=== PATIENT | female | born 1950 | race Caucasian/White ===

== ENCOUNTER 2018-08-02 10:21 | Day surgery (SDC) | payer OTHER ==
[~2018-08-02 10:21] MED LIST: KETOROLAC TROMETHAMINE 0.45% 4 DROP/0.4 ML DROPERETTE OD PRN; MIDAZOLAM 2 MG/2 ML INJ ONE
[2018-08-02] MEDS ORDERED: CHONDR SU A NA/HYALUR INTRAOC KIT (SURGICARE) ONE (10:26)
[2018-08-02] MEDS ORDERED: LIDOCAINE 1%/PHENYLEPHRINE 1.5% 1 ML VIAL ONE (10:26)
[2018-08-02] MEDS ORDERED: EPINEPHRINE INJ/PF 1 MG/1 ML AMPULE ONE (10:26)
[2018-08-02] MEDS: TETRACAINE HCL 0.5% OPH SOLN 4 ML OD PRN ×3 (11:00→11:34)
[2018-08-02] MEDS: TROPICAMIDE 1% OPH SOLN 3 ML OD PRN ×3 (11:00→11:20)
[2018-08-02] MEDS: CYCLOPENTOLATE 0.2%/PHENYLEPHRINE 1% OPH SOLN 2 ML OD PRN ×3 (11:00→11:20)
[2018-08-02] MEDS: BESIFLOXACIN HCL 0.6% OPH SUSP 5 ML BOTTLE OD PRN ×4 (11:01→11:54)
--- NOTE | 2018-08-02 18:47 | [facility] DISCHARGE SUMMARY E ---
[facility] Discharge Summary NAME: CATARINA MEDINA AGE: 68Y ADMITTED: 08/02/2018 DISCHARGED: 08/02/2018 HOSPITAL COURSE: This is a 68-year-old female who underwent cataract extraction of the right eye. DIAGNOSIS: CATARACT, RIGHT EYE. She underwent surgery because she was having difficulty driving secondary to glare from headlights. DISCHARGE INSTRUCTIONS: She should be on a regular diet. No bending at her waist, no heavy lifting. She should use her Besivance, Ilevro, and Durezol at 3 p.m. and 8 p.m. and sleep with a rigid shield. I will see her for her 1 day postoperative tomorrow. DICTATING PHYSICIAN: MIRZA HERNANDEZ M.D. [id number] PHY#: [id number] ID: [id number] JOB#: [id number] ACCT: [id number] cc:MIRZA HERNANDEZ M.D. >
--- NOTE | 2018-08-02 18:47 | [facility] OPERATIVE REPORT E ---
[facility] Operative Report NAME: CATARINA MEDINA AGE: 68Y DATE OF SURGERY: 08/02/2018 ROOM: PREOPERATIVE DIAGNOSIS: CATARACT, RIGHT EYE. POSTOPERATIVE DIAGNOSIS: CATARACT, RIGHT EYE. OPERATION: Cataract extraction with insertion of an IOL of the right eye. SURGEON: MIRZA HERNANDEZ M.D. ANESTHESIA: Topical. PROCEDURE: After obtaining appropriate consent, the patient's right eye was prepped and draped in sterile fashion as well as the surgeon in a sterile manner and cataract surgery was started. First a paracentesis blade was used to make a side-port incision. Viscoelastic was used to inflate the anterior chamber. Next a 2.4 mm incision was made with a 2.4 mm blade, clear corneal temporally. A continuous capsulorrhexis was made using a cystotome and Utrata forceps. Following this hydrodissection was carried out to make the lens fully loose and mobile and it was rotated 90 degrees. Following this, a uoaawc-yej-onhkwuc technique was used to phacoemulsify the lens with a CDE of 8.26 . The remaining cortex was removed with irrigation/aspiration. Provisc was instilled into the capsular bag to inflate the bag. A SN60WF, 21.5 diopter lens was placed. The remaining viscoelastic material was removed with irrigation/aspiration. Following this, the incision was found to be watertight. Besivance was instilled into the eye and a protective shield was placed over the eye. The patient returned to the postoperative recovery in stable condition. DICTATING PHYSICIAN: IMRZA HERNANDEZ M.D. [id number] PHY#: [id number] ID: [id number] JOB#: [id number] ACCT: [id number] cc:MIRZA HERNANDEZ M.D. >
== END 2018-08-02 12:48 | disposition home or self-care (01) ==
LOC: SC 10:21
PROVIDERS: ATTEND Internal Medicine
DX: H25.13 Age-related nuclear cataract, bilateral (principal); H57.03 Miosis; I10 Essential (primary) hypertension; E78.00 Pure hypercholesterolemia, unspecified; Z79.899 Other long term (current) drug therapy; H04.123 Dry eye syndrome of bilateral lacrimal glands
CPT/HCPCS: 66984; V2632; J2250; J3490 ×2; J0171; J2370; 142

== ENCOUNTER 2018-08-20 08:36 | Day surgery (SDC) | payer OTHER ==
[2018-08-20] MEDS ORDERED: MIDAZOLAM 2 MG/2 ML INJ ONE (08:52)
[2018-08-20] MEDS ORDERED: EPINEPHRINE INJ/PF 1 MG/1 ML AMPULE ONE (09:08)
[2018-08-20] MEDS ORDERED: LIDOCAINE 1%/PHENYLEPHRINE 1.5% 1 ML VIAL ONE (09:08)
[2018-08-20] MEDS ORDERED: CHONDR SU A NA/HYALUR INTRAOC KIT (SURGICARE) ONE (09:09)
[2018-08-20] MEDS: TETRACAINE HCL 0.5% OPH SOLN 4 ML OS PRN ×3 (09:25→09:59)
[2018-08-20] MEDS: CYCLOPENTOLATE 0.2%/PHENYLEPHRINE 1% OPH SOLN 2 ML OS PRN ×3 (09:25→09:45)
[2018-08-20] MEDS: TROPICAMIDE 1% OPH SOLN 3 ML OS PRN ×3 (09:26→09:45)
[2018-08-20] MEDS: KETOROLAC TROMETHAMINE 0.45% 4 DROP/0.4 ML DROPERETTE OS PRN ×2 (09:26→10:31)
[2018-08-20] MEDS: BESIFLOXACIN HCL 0.6% OPH SUSP 5 ML BOTTLE OS PRN ×3 (09:26→10:24)
[2018-08-20] MEDS ORDERED: CHONDR SU A NA/HYALUR SOD 0.5 ML DISP.SYRIN ONE (11:13)
--- NOTE | 2018-08-20 14:26 | [facility] OPERATIVE REPORT E ---
[facility] Operative Report NAME: CATARINA MEDINA AGE: 68Y DATE OF SURGERY: 08/20/2018 ROOM: PREOPERATIVE DIAGNOSIS: CATARACT, LEFT EYE. POSTOPERATIVE DIAGNOSIS: CATARACT, LEFT EYE. OPERATION: Cataract extraction with insertion of an IOL of the left eye. SURGEON: MIRZA HERNANDEZ M.D. ANESTHESIA: Topical. PROCEDURE: After obtaining appropriate consent, the patient's left eye was prepped and draped in sterile fashion as well as the surgeon in a sterile manner and cataract surgery was started. First a paracentesis blade was used to make a side-port incision. Viscoelastic was used to inflate the anterior chamber. Next a 2.4 mm incision was made with a 2.4 mm blade, clear corneal temporally. A continuous capsulorrhexis was made using a cystotome and Utrata forceps. Following this hydrodissection was carried out to make the lens fully loose and mobile and it was rotated 90 degrees. Following this, a bksxxr-hsw-xfydadj technique was used to phacoemulsify the lens with a CDE of 6.97. The remaining cortex was removed with irrigation/aspiration. Provisc was instilled into the capsular bag to inflate the bag. A SN60WF, 21.0 diopter lens was placed. The remaining viscoelastic material was removed with irrigation/aspiration. Following this, the incision was found to be watertight. Besivance was instilled into the eye and a protective shield was placed over the eye. The patient returned to the postoperative recovery in stable condition. DICTATING PHYSICIAN: MIRZA HERNANDEZ M.D. [id number] PHY#: [id number] ID: [id number] JOB#: [id number] ACCT: [id number] cc:MIRZA HERNANDEZ M.D. >
--- NOTE | 2018-08-20 14:32 | [facility] DISCHARGE SUMMARY E ---
[facility] Discharge Summary NAME: CATARINA MEDINA AGE: 68Y ADMITTED: 08/20/2018 DISCHARGED: 08/20/2018 DIAGNOSIS: CATARACT, LEFT EYE. SUMMARY: This is a 68-year-old female who underwent cataract extraction, left eye. She underwent surgery because she was having trouble seeing road signs. DISCHARGE INSTRUCTIONS: She should be on a regular diet, no bending at the waist, and no heavy lifting. The patient should use her Besivance, Ilevro, and Durezol at 3 p.m. and 8 p.m. and sleep with a rigid shield. I will see her for her 1-day postoperative tomorrow. DICTATING PHYSICIAN: MIRZA HERNANDEZ M.D. [id number] Y#: [id number] ID: [id number] JOB#: [id number] ACCT: [id number] cc:MIRZA HERNANDEZ M.D. >
== END 2018-08-20 11:08 | disposition home or self-care (01) ==
LOC: SC 08:36
PROVIDERS: ATTEND Internal Medicine
DX: H25.12 Age-related nuclear cataract, left eye (principal)
CPT/HCPCS: 66984; V2632; J2250; J3490 ×3; J0171; J2370; 142

== ENCOUNTER 2020-05-30 15:54 | Emergency (ER) | payer OTHER, BC ==
--- NOTE | 2020-05-30 16:50 | ER Document Report ---
ED Medical Screen (RME) - General Chief Complaint: Fall Stated Complaint: FALL/KNEE PAIN Time Seen by Provider: 05/30/20 16:42 Primary Care Provider: JAZ GRAHAM CNM [Primary Care Provider] - Follow up as needed Notes: Patient is a 70-year-old female who presents emergency department after mechanical fall. Patient was at home and working in her garden and ended up tripping and falling on her left knee. Patient states that she did hit her head. She is currently on Eliquis. She denies any loss of consciousness. Patient stopped to urgent care was referred to the emergency department. On the way over, she noticed that she had bruising to her left hand. Exam: Alert and oriented. Tenderness noted to the left knee and left hand. I have greeted and performed a rapid initial assessment of this patient. A co mprehensive ED assessment and evaluation of the patient, analysis of test results and completion of medical decision making process will be conducted by an additional ED providers. TRAVEL OUTSIDE OF THE [place] IN LAST 30 DAYS: No - Related Data Allergies/Adverse Reactions: No Known Allergies Allergy (Verified 05/30/20 16:43) Home Medications: Valsartan, Eliquis Past Medical History - Social History Frequency of alcohol use: None Drug Abuse: None - Past Medical History Cardiac Medical History: Reports: Hx Hypertension Denies: Hx Heart Attack Pulmonary Medical History: Denies: Hx Asthma Neurological Medical History: Denies: Hx Cerebrovascular Accident, Hx Seizures GI Medical History: Denies: Hx Hepatitis, Hx Hiatal Hernia, Hx Ulcer Infectious Medical History: Denies: Hx Hepatitis Past Surgical History: Reports: Hx Hysterectomy. Denies: Hx Mastectomy, Hx Open Heart Surgery, Hx Pacemaker Physical Exam - Vital signs Vitals: Temp Pulse Resp BP Pulse Ox 98.4 F 64 18 188/87 H 99 05/30/20 16:02 05/30/20 16:02 05/30/20 16:02 05/30/20 16:02 05/30/20 16:02 Course - Vital Signs Vital signs: Temp Pulse Resp BP Pulse Ox 98.4 F 64 18 188/87 H 99 05/30/20 16:02 05/30/20 16:02 05/30/20 16:02 05/30/20 16:02 05/30/20 16:02 Doctor's Discharge - Discharge Referrals: JAZ GRAHAM CNM [Primary Care Provider] - Follow up as needed
--- NOTE | 2020-05-30 17:38 | RADIOLOGY REPORT (SQ) ---
EXAM DESCRIPTION: HAND LEFT 3 VIEWS IMAGES COMPLETED DATE/TIME: 05/30/2020 5:11 pm REASON FOR STUDY: fall COMPARISON: None. EXAM PARAMETERS: NUMBER OF VIEWS: Three views. TECHNIQUE: AP, lateral and oblique radiographic images acquired of the left hand. LIMITATIONS: None. FINDINGS: MINERALIZATION: Normal. BONES: No acute fracture or dislocation. No worrisome bone lesions. JOINTS: No effusions. SOFT TISSUES: No soft tissue swelling. No foreign body. OTHER: No other significant finding. IMPRESSION: NEGATIVE STUDY OF THE LEFT HAND. NO RADIOGRAPHIC EVIDENCE OF ACUTE INJURY. TECHNICAL DOCUMENTATION: JOB ID: [id number] 2010 [employer]- All Rights Reserved Reading location - IP/workstation name: [email or web address]
--- NOTE | 2020-05-30 17:39 | RADIOLOGY REPORT (SQ) ---
EXAM DESCRIPTION: ANKLE LEFT COMPLETE IMAGES COMPLETED DATE/TIME: 05/30/2020 5:11 pm REASON FOR STUDY: fall; ankle pain COMPARISON: None. NUMBER OF VIEWS: Three views. TECHNIQUE: AP, lateral, and oblique radiographic images acquired of the left ankle. LIMITATIONS: None. FINDINGS: MINERALIZATION: Normal. BONES: No acute fracture or dislocation. No worrisome bone lesions. Incidental note is made of a ti ny Achilles enthesophyte. JOINTS: No effusions. SOFT TISSUES: No soft tissue swelling. No foreign body. OTHER: No other significant finding. IMPRESSION: NEGATIVE STUDY OF THE LEFT ANKLE. NO RADIOGRAPHIC EVIDENCE OF ACUTE INJURY. TECHNICAL DOCUMENTATION: JOB ID: [id number] 2010 [employer]- All Rights Reserved Reading location - IP/workstation name: [email or web address]
--- NOTE | 2020-05-30 17:40 | RADIOLOGY REPORT (SQ) ---
EXAM DESCRIPTION: KNEE LEFT 4 VIEW IMAGES COMPLETED DATE/TIME: 05/30/2020 5:11 pm REASON FOR STUDY: fall COMPARISON: None. NUMBER OF VIEWS: Four views. TECHNIQUE: AP, lateral, and both oblique radiographic images acquired of the left knee. LIMITATIONS: None. FINDINGS: MINERALIZATION: Normal. BONES: No acute fracture or dislocation. No worrisome bone lesions. Mild tricompartmental degenerat russ changes are present. JOINT: Small suprapatellar effusion. SOFT TISSUES: No soft tissue swelling. No radio-opaque foreign body. OTHER: No other significant finding. IMPRESSION: No evidence of acute osseous injury. Background of mild tricompartmental degenerative c hanges and a small suprapatellar effusion. TECHNICAL DOCUMENTATION: JOB ID: [id number] 2010 [employer]- All Rights Reserved Reading location - IP/workstation name: [email or web address]
--- NOTE | 2020-05-30 18:07 | RADIOLOGY REPORT (SQ) ---
EXAM DESCRIPTION: CT CERVICAL SPINE WITHOUT IMAGES COMPLETED DATE/TIME: 05/30/2020 5:37 pm REASON FOR STUDY: fall COMPARISON: None. TECHNIQUE: Axial images acquired through the cervical spine without intravenous contrast. Images re viewed with lung, soft tissue and bone windows. Reconstructed coronal and sagittal MPR images review ed. Images stored on PACS. All CT scanners at this facility use dose modulation, iterative reconstruction, and/or weight based d osing when appropriate to reduce radiation dose to as low as reasonably achievable (ALARA). [facility]: Dose Right [facility]: CareDose [facility]: Dose Right [facility]: Teradose 4D [facility]: Smart Auctelia RADIATION DOSE: CT Rad equipment meets quality standard of care and radiation dose reduction techniq ues were employed. CTDIvol: 15.1 mGy. DLP: 306 mGy-cm. mGy. LIMITATIONS: None. FINDINGS: ALIGNMENT: Mild reversal of the normal lordotic curvature centered at the C5/6 level on th e basis of spondylotic change. MINERALIZATION: Normal. VERTEBRAL BODIES: No fractures or dislocation. DISCS: Multilevel disc space narrowing with osteophytes most significantly affecting the C5/6 level. . FACETS, LATERAL MASSES, POSTERIOR ELEMENTS: Facet arthropathy. No fractures. No dislocation. No ac turtle mountain findings. HARDWARE: None in the spine. VISUALIZED RIBS: No fractures. LUNG APICES AND SOFT TISSUES: No significant or acute findings. OTHER: No other significant finding. IMPRESSION: CHRONIC DEGENERATIVE CHANGES. NO ACUTE FINDINGS. TECHNICAL DOCUMENTATION: JOB ID: [id number] Quality ID # [id number]: Final reports with documentation of one or more dose reduction techniques (e.g., Au tomated exposure control, adjustment of the mA and/or kV according to patient size, use of iterative reconstruction technique) 2010 [employer]- All Rights Reserved Reading location - IP/workstation name: [email or web address]
--- NOTE | 2020-05-30 18:09 | RADIOLOGY REPORT (SQ) ---
EXAM DESCRIPTION: CT HEAD WITHOUT IMAGES COMPLETED DATE/TIME: 05/30/2020 5:38 pm REASON FOR STUDY: fall COMPARISON: None. TECHNIQUE: Axial images acquired through the brain without intravenous contrast. Images reviewed wi th bone, brain and subdural windows. Additional sagittal and coronal reconstructions were generated. Images stored on PACS. All CT scanners at this facility use dose modulation, iterative reconstruction, and/or weight based d osing when appropriate to reduce radiation dose to as low as reasonably achievable (ALARA). [facility]: Dose Right [facility]: CareDose [facility]: Dose Right [facility]: Teradose 4D [facility]: [employer] RADIATION DOSE: CT Rad equipment meets quality standard of care and radiation dose reduction techniq ues were employed. CTDIvol: 53.2 mGy. DLP: 1070 mGy-cm. mGy. LIMITATIONS: None. FINDINGS: VENTRICLES: Prominent. CEREBRUM: No masses. No hemorrhage. No midline shift. Areas of low density in the white matter mos t likely due to chronic micro-vascular ischemic change. No evidence for acute infarction. CEREBELLUM: No masses. No hemorrhage. No alteration of density. No evidence for acute infarction. EXTRAAXIAL SPACES: Mild age-related involutional change. No fluid collections. No masses. ORBITS AND GLOBE: No intra- or extraconal masses. Normal contour of globe without masses. CALVARIUM: No fracture. PARANASAL SINUSES: No fluid or mucosal thickening. SOFT TISSUES: No mass or hematoma. OTHER: No other significant finding. IMPRESSION: MILD CHRONIC CHANGES OF ATROPHY AND MICROVASCULAR ISCHEMIA. NO ACUTE PROCESS. EVIDENCE OF ACUTE STROKE: NO. TECHNICAL DOCUMENTATION: JOB ID: [id number] Quality ID # [id number]: Final reports with documentation of one or more dose reduction techniques (e.g., Au tomated exposure control, adjustment of the mA and/or kV according to patient size, use of iterative reconstruction technique) 2010 [employer]- All Rights Reserved Reading location - IP/workstation name: [email or web address]
[2020-05-30] MEDS ORDERED: ACETAMINOPHEN 325 MG TABLET PO ONE (19:01)
--- NOTE | 2020-05-30 19:01 | ER Document Report ---
ED Fall - General Chief Complaint: Fall Stated Complaint: FALL/KNEE PAIN Time Seen by Provider: 05/30/20 16:42 Primary Care Provider: MICHAELA CARRILLO FNP [NURSE PRACTITIONER] - 06/01/20 Notes: Patient is a 70-year-old female who presents emergency department after mechanical fall. Patient was at home and working in her garden and ended up tripping and falling on her left knee. Patient states that she did hit her head. She is currently on Eliquis. She denies any loss of consciousness. Patient stopped to urgent care was referred to the emergency department. On the way over, she noticed that she had bruising to her left hand. TRAVEL OUTSIDE OF THE [place] IN LAST 30 DAYS: No - Related data Allergies/Adverse Reactions: No Known Allergies Allergy (Verified 05/30/20 16:43) Home Medications: Valsartan, Eliquis Past Medical History - General Information source: Patient, Relative - Social History Smoking Status: Never Smoker Frequency of alcohol use: None Drug Abuse: None Family History: Reviewed & Not Pertinent - Past Medical History Cardiac Medical History: Reports: Hx Hypertension Denies: Hx Heart Attack Pulmonary Medical History: Denies: Hx Asthma Neurological Medical History: Denies: Hx Cerebrovascular Accident, Hx Seizures GI Medical History: Denies: Hx Hepatitis, Hx Hiatal Hernia, Hx Ulcer Infectious Medical History: Denies: Hx Hepatitis Past Surgical History: Reports: Hx Hysterectomy. Denies: Hx Mastectomy, Hx Open Heart Surgery, Hx Pacemaker Review of Systems - Review of Systems Notes: REVIEW OF SYSTEMS: CONSTITUTIONAL : Denies recent illness. Denies recent unintentional weight loss. Denies fever, chills, or sweats. EENT: Denies eye, ear, throat, or mouth pain, discharge, or symptoms. Denies nasal or sinus congestion. CARDIOVASCULAR: Denies chest pain. RESPIRATORY: Denies shortness of breath, cough, congestion, difficulty breathing, or wheezing. GASTROINTESTINAL: Denies nausea, vomiting, and diarrhea. Denies abdominal pain. Denies constipation. GENITOURINARY: Denies difficulty urinating, burning, blood in urine, urgency or frequency. MUSCULOSKELETAL: Denies neck and back pain. See HPI. SKIN: Denies rash, itchiness, or lesions HEMATOLOGIC : Denies easy bruising or bleeding. LYMPHATIC: Denies swollen, painful, enlarged glands. NEUROLOGICAL: Denies no numbness or tingling denies weakness. Denies headache. Denies altered mental status. Denies alteration in speech. PSYCHIATRIC: Denies stress, anxiety, alteration in sleep patterns, or depression. All other systems reviewed and negative. Physical Exam - Vital signs Vitals: Temp Pulse Resp BP Pulse Ox 98.4 F 64 18 188/87 H 99 05/30/20 16:02 05/30/20 16:02 05/30/20 16:02 05/30/20 16:02 05/30/20 16:02 - Notes Notes: PHYSICAL EXAMINATION: GENERAL: Appears well, healthy, well-nourished, no acute distress. HEAD: Normocephalic, atraumatic. EYES: PERRL, conjunctiva normal, all extraocular movements intact, sclera nonicteric ENT: Moist mucous membranes. NECK: Supple, no noticeable swelling, redness, rash. Normal range of motion. LUNGS: Equal breath sounds bilaterally and clear to auscultation. No wheezes rales or rhonchi. CARDIOVASCULAR: S1-S2, regular rate, regular rhythm. Radial pulses 2+, normal. ABDOMEN: Normoactive bowel sounds. Soft, nontender, no guarding, no rebound tenderness, and no masses palpated. EXTREMITIES: Normal strength and range of motion, no pitting or edema. Tenderness noted to left knee, left hand at fifth metacarpal, and left ankle. NEUROLOGICAL: Moves all extremities upon command. Strength 5/5 in all extremities. PSYCH: Normal mood, normal affect. SKIN: Warm, dry. No rash, lesions, ulcerations noted. Normal skin turgor. Course - Re-evaluation Re-evalutation: 05/30/20 19:[address] of the head shows microvascular changes and atrophy, but there is no acute processes. I have a low suspicion for an acute stroke, as the patient has equal and normal strength in all extremities. Patient's strength is 5 out of 5 in all extremities. Ankle x-ray was unremarkable. Left knee x-ray shows a small effusion, consistent with her falling on her left knee. Hand x-ray is unremarkable. CT of the neck was also unremarkable. At this time, the patient's blood pressure is elevated, but I had a lengthy conversation with the patient and her daughter. Patient is anxious to go home. I suspect this is the reason why her blood pressure is high. Advised the patient to follow-up with her primary care provider on Monday. Patient and daughter are in agreement with this plan. There are no neurological deficits noted. Follow-up precautions were given. Verbal discharge instructions were given to the patient. They verbalized understanding. They are stable for discharge. - Vital Signs Vital signs: Temp Pulse Resp BP Pulse Ox 98.0 F 94 18 198/94 H 96 05/30/20 19:03 05/30/20 19:03 05/30/20 19:03 05/30/20 19:03 05/30/20 19:03 Discharge - Discharge Clinical Impression: Fall Qualifiers: Encounter type: initial encounter Qualified Code(s): W19.XXXA - Unspecified fall, initial encounter High blood pressure Qualifiers: Hypertension type: unspecified Qualified Code(s): I10 - Essential (primary) hypertension Condition: Stable Disposition: HOME, SELF-CARE Additional Instructions: You were seen today in the emergency department after a fall. Your CT scans and x-rays are normal. Your blood pressure was high here in the emergency department. Please follow-up with your primary care provider to have your blood pressure rechecked. Your blood pressure may be elevated due to your fall and pain. Take Tylenol/acetaminophen 650 mg every 6 hours for your pain. Referrals: MICHAELA CARRILLO FNP [NURSE PRACTITIONER] - 06/01/20
[2020-05-30 19:04] VITALS: BP 198/94
== END 2020-05-30 19:15 | disposition home or self-care (01) ==
LOC: ER 15:54
DX: I10 Essential (primary) hypertension (principal); S09.90XA Unspecified injury of head, initial encounter; M25.562 Pain in left knee; W19.XXXA Unspecified fall, initial encounter; Y92.009 Unspecified place in unspecified non-institutional (private) residence as the place of occurrence of the external cause; Z79.899 Other long term (current) drug therapy; Z79.01 Long term (current) use of anticoagulants
CPT/HCPCS: 70450; 72125; 99284

== ENCOUNTER 2020-06-05 06:27 | Emergency (ER) | payer BC, OTHER ==
[2020-06-05 07:06] LABS: ABSOLUTE BASOPHILS # (AUTO) 0.1 10^3/uL (0.0-0.2); ABSOLUTE LYMPHOCYTES (AUTO) 0.8 10^3/uL (0.5-4.7); ABSOLUTE MONOCYTES (AUTO) 0.9 10^3/uL (0.1-1.4); ABSOLUTE NEUT (AUTO) 11.3 10^3/uL (1.7-8.2); BASOPHILS % (AUTO) 0.5 % (0-2); HEMATOCRIT 41.2 % (36.0-47.0); HEMOGLOBIN 13.8 g/dL (12.0-15.5); LYMPHOCYTES % (AUTO) 6.1 % (13-45); MEAN CORPUSCULAR HEMOGLOBIN 27.3 pg (27.0-33.4); MEAN CORPUSCULAR HGB CONC 33.5 g/dL (32.0-36.0); MEAN CORPUSCULAR VOLUME 82 fl (80-97); MONOCYTES % (AUTO) 6.8 % (3-13); PLATELET COUNT 211 10^3/uL (150-450); RED BLOOD COUNT 5.05 10^6/uL (3.72-5.28); RED CELL DISTRIBUTION WIDTH 13.7 % (11.5-14.0); SEGMENTED NEUTROPHILS % (AUTO) 86.6 % (42-78); TOTAL CELLS COUNTED % (AUTO) 100 %
[2020-06-05 07:07] LABS: VENOUS BLOOD BASE EXCESS -1.4 mmol/L; VENOUS BLOOD HCO3 22.6 mmol/L (20-32); VENOUS BLOOD PCO2 36.1 mmHg (35-63); VENOUS BLOOD PH 7.42 (7.30-7.42)
[2020-06-05] MEDS ORDERED: DILTIAZEM HCL INJ 25 MG/5 ML VIAL IV ONE ×2 (07:18→08:45)
[2020-06-05] MEDS ORDERED: DILTIAZEM HCL/D5W 125 MG/125 ML RTUINJ IV PRN (07:20)
--- NOTE | 2020-06-05 07:21 | EKG REPORT ---
SEVERITY:- ABNORMAL ECG - ATRIAL FIBRILLATION WITH RAPID V-RATE PROBABLE LVH WITH SECONDARY REPOL ABNRM : Confirmed by: Lucy Leyva 05-Jun-2020 07:20:42
[2020-06-05 07:24] LABS: ALBUMIN 4.5 g/dL (3.5-5.0); ALKALINE PHOSPHATASE 116 U/L (38-126); ANION GAP 12 (5-19); ASPARTATE AMINO TRANSFERASE 46 U/L (14-36); BILIRUBIN,DIRECT 0.3 mg/dL (0.0-0.4); BILIRUBIN,TOTAL 1.1 mg/dL (0.2-1.3); BLOOD UREA NITROGEN 12 mg/dL (7-20); CALCIUM 9.4 mg/dL (8.4-10.2); CARBON DIOXIDE 26 mmol/L (22-30); CHLORIDE 101 mmol/L (98-107); GLUCOSE 191 mg/dL (75-110); POTASSIUM 3.4 mmol/L (3.6-5.0); TOTAL PROTEIN 7.7 g/dL (6.3-8.2)
[2020-06-05] MEDS ORDERED: NORMAL SALINE 1000 ML 1,000 ML IV ONE ×2 (07:24→15:00)
[2020-06-05 07:25] LABS: INTERNATIONAL RATION (INR) 1.22; PROTHROMBIN TIME 15.6 SEC (11.4-15.4)
[2020-06-05] MEDS ORDERED: ACETAMINOPHEN 650 MG SUPP.RECT PR ONE (07:31)
[2020-06-05 07:47] LABS: APPEARANCE,URINE CLOUDY; BILIRUBIN,URINE NEGATIVE (NEGATIVE); COLOR,URINE YELLOW; GLUCOSE, URINE 50 mg/dL (NEGATIVE); KETONES,URINE TRACE mg/dL (NEGATIVE); PROTEIN,URINE >=500 mg/dL (NEGATIVE); URINE SPECIFIC GRAVITY 1.019; UROBILINOGEN,URINE NEGATIVE mg/dL (<2.0)
[2020-06-05 07:52] LABS: CREATINE KINASE 83 U/L (30-135)
[2020-06-05 08:03] LABS: ACETAMINOPHEN < 10 ug/mL (10-30); ALCOHOL < 10 mg/dL (NONE DETECTED)
[2020-06-05 08:08] LABS: URINE AMPHETAMINES SCREEN NEGATIVE; URINE BARBITURATES SCREEN NEGATIVE; URINE BENZODIAZEPINES SCREEN NEGATIVE; URINE COCAINE SCREEN NEGATIVE; URINE MARIJUANA (THC) SCREEN NEGATIVE; URINE METHADONE SCREEN NEGATIVE; URINE PHENCYCLIDINE SCREEN NEGATIVE
--- NOTE | 2020-06-05 08:32 | RADIOLOGY REPORT (SQ) ---
EXAM DESCRIPTION: CHEST SINGLE VIEW IMAGES COMPLETED DATE/TIME: 06/05/2020 7:35 am REASON FOR STUDY: cough COMPARISON: None. EXAM PARAMETERS: NUMBER OF VIEWS: One view. TECHNIQUE: Single frontal radiographic view of the chest acquired. RADIATION DOSE: NA LIMITATIONS: None. FINDINGS: LUNGS AND PLEURA: No opacities, masses or pneumothorax. No pleural effusion. MEDIASTINUM AND HILAR STRUCTURES: No masses. Contour normal. HEART AND VASCULAR STRUCTURES: Mild cardiomegaly BONES: No acute findings. HARDWARE: None in the chest. OTHER: No other significant finding. IMPRESSION: Mild cardiomegaly. No acute findings TECHNICAL DOCUMENTATION: JOB ID: [id number] 2010 [employer]- All Rights Reserved Reading location - IP/workstation name: [email or web address]
--- NOTE | 2020-06-05 08:59 | RADIOLOGY REPORT (SQ) ---
EXAM DESCRIPTION: CT HEAD WITHOUT IMAGES COMPLETED DATE/TIME: 06/05/2020 8:26 am REASON FOR STUDY: altered mental status COMPARISON: None. TECHNIQUE: Axial images acquired through the brain without intravenous contrast. Images reviewed wi th bone, brain and subdural windows. Additional sagittal and coronal reconstructions were generated. Images stored on PACS. All CT scanners at this facility use dose modulation, iterative reconstruction, and/or weight based d osing when appropriate to reduce radiation dose to as low as reasonably achievable (ALARA). [facility]: Dose Right [facility]: CareDose [facility]: Dose Right [facility]: Teradose 4D [facility]: [employer] RADIATION DOSE: CT Rad equipment meets quality standard of care and radiation dose reduction techniq ues were employed. CTDIvol: 53.2 mGy. DLP: 991 mGy-cm. LIMITATIONS: None. FINDINGS: There is an intraparenchymal hematoma in the right temporal lobe that measures 4 x 2.7 cm ; the hematoma is associated with vasogenic edema, effacement of the cerebral sulci, loss of the davis -white and mild mass effect upon the adjacent brain parenchyma. The confluent areas of low-attenuation in the supratentorial periventricular and subcortical white ma tter are nonspecific but likely represent the sequela of chronic microvascular ischemia. The caliber of the ventricles is concordant with the degree of sulcation. There is no midline shift or effacement of the basal subarachnoid cisterns. The globes aphakic. The orbits are intact. 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 There is no fracture of the calvarium. IMPRESSION: 4 x 2.7 cm intraparenchymal hematoma in the right temporal lobe associated associated wi th vasogenic edema, effacement of the cerebral sulci, loss of the davis-white and mild mass effect upo n the adjacent brain parenchyma. COMMENT: This report was called to MORA CHENG MD at08:50 on 06/05/2020. Quality ID # [id number]: Final reports with documentation of one or more dose reduction techniques (e.g., Au tomated exposure control, adjustment of the mA and/or kV according to patient size, use of iterative reconstruction technique) TECHNICAL DOCUMENTATION: JOB ID: [id number] 2010 [employer]- All Rights Reserved Reading location - IP/workstation name: [email or web address]
--- NOTE | 2020-06-05 09:03 | RADIOLOGY REPORT (SQ) ---
EXAM DESCRIPTION: CT CERVICAL SPINE WITHOUT IMAGES COMPLETED DATE/TIME: 06/05/2020 8:26 am REASON FOR STUDY: ams/neck pain COMPARISON: None. TECHNIQUE: Axial images acquired through the cervical spine without intravenous contrast. Images re viewed with lung, soft tissue and bone windows. Reconstructed coronal and sagittal MPR images review ed. Images stored on PACS. All CT scanners at this facility use dose modulation, iterative reconstruction, and/or weight based d osing when appropriate to reduce radiation dose to as low as reasonably achievable (ALARA). [facility]: Dose Right [facility]: CareDose [facility]: Dose Right [facility]: Teradose 4D [facility]: [employer] RADIATION DOSE: CT Rad equipment meets quality standard of care and radiation dose reduction techniq ues were employed. CTDIvol: 20.7 mGy. DLP: 417 mGy-cm. LIMITATIONS: Evaluation is limited due to patient motion artifact. FINDINGS: ALIGNMENT: There is straightening of the normal lordotic curvature of the cervical spine w ith grade 1 anterolisthesis of C7 relative to T1. There is no craniocervical or atlantoaxial dissoci ation. MINERALIZATION: Normal. VERTEBRAL BODIES: The cervical vertebral body heights are preserved. There is no fracture. DISCS: The C5-C6 and C6-C7 intervertebral disc spaces are narrowed and at C5-C6 there is associated e ndplate sclerosis and a posterior disc osteophyte complex that encroaches on the ventral aspect of th e spinal canal ; further evaluation of the spinal canal for cord compression or stenosis is limited i n the absence of intrathecal contrast. FACETS, LATERAL MASSES, POSTERIOR ELEMENTS: Severe osteophytic foraminal narrowing on the right at C5 -C6 due to a combination of facet joint arthropathy and uncovertebral hypertrophy. The articular bernadette face of the left C3-C4 the set joint is irregular. There is no acute fracture or malalignment of the lateral masses and posterior elements. HARDWARE: None in the spine. VISUALIZED RIBS: No fractures. LUNG APICES AND SOFT TISSUES: No acute findings. OTHER: No other finding. IMPRESSION: Evaluation is limited due to patient motion artifact particularly at at C5-C6. There is no definite acute fracture or malalignment of the cervical spine. TECHNICAL DOCUMENTATION: JOB ID: [id number] Quality ID # [id number]: Final reports with documentation of one or more dose reduction techniques (e.g., Au tomated exposure control, adjustment of the mA and/or kV according to patient size, use of iterative reconstruction technique) 2010 [employer]- All Rights Reserved Reading location - IP/workstation name: [email or web address]
[2020-06-05 09:28] LABS: D-DIMER 0.82 ug/mL (0.00-0.50)
--- NOTE | 2020-06-05 09:30 | RADIOLOGY REPORT (SQ) ---
EXAM DESCRIPTION: CT ABD/PELVIS WITH IV ONLY IMAGES COMPLETED DATE/TIME: 06/05/2020 8:26 am REASON FOR STUDY: pain COMPARISON: None. TECHNIQUE: CT scan of the abdomen and pelvis performed using helical scanning technique with dynamic intravenous contrast injection. No oral contrast. Images reviewed with lung, soft tissue, and bone windows. Reconstructed coronal and sagittal MPR images reviewed. Delayed images for evaluation of the urinary system also acquired. All images stored on PACS. All CT scanners at this facility use dose modulation, iterative reconstruction, and/or weight based d osing when appropriate to reduce radiation dose to as low as reasonably achievable (ALARA). [facility]: Dose Right [facility]: CareDose [facility]: Dose Right [facility]: Teradose 4D [facility]: [employer] CONTRAST TYPE AND DOSE: 77 mL Omnipaque 350- low osmolar. RENAL FUNCTION: No GFR or creatinine was documented. LIMITATIONS: None. FINDINGS: LOWER CHEST: Refer to the separate report of the CT of the chest. LIVER: The morphology of the liver is noncirrhotic. The portal veins are patent. There is no hepati c mass, laceration or subcapsular hematoma. SPLEEN: No splenomegaly or splenic mass. PANCREAS: No acute gross abnormality of the pancreas. GALLBLADDER: No abnormality that is apparent on CT. ADRENAL GLANDS: 17 x 14 mm right adrenal nodule. RIGHT KIDNEY AND URETER: There is an 11 x 3 mm calculus in the ureterovesicular junction that is ass ociated with severe hydroureteronephrosis and increased urothelial enhancement. There is no other re nal or ureteral calculus. There is no solid mass. LEFT KIDNEY AND URETER: No solid mass, hydronephrosis, nephrolithiasis, hydroureter or ureterolithias is. AORTA AND VESSELS: No aneurysm or dissection of the abdominal aorta. The abdominopelvic vasculature is patent. RETROPERITONEUM: No retroperitoneal adenopathy, hemorrhage or mass. BOWEL AND PERITONEAL CAVITY: No bowel obstruction, bowel wall thickening or pericolonic/ perienteric inflammation. No mesenteric adenopathy, free intraperitoneal fluid or mesenteric/omental inflammatio n. APPENDIX: Unable to identify the appendix. There is no pericecal inflammation. PELVIS: The uterus is surgically absent. There is no abnormality of the urinary bladder or adnexa. ABDOMINAL WALL: No abdominal wall mass or hernia. BONES: No acute findings. OTHER: No other finding. IMPRESSION: 1. 11 x 3 mm calculus in the right ureterovesicular junction that is associated with se omer hydroureteronephrosis and increased urothelial enhancement. 2. 17 x 4 mm right adrenal nodule. TECHNICAL DOCUMENTATION: JOB ID: [id number] Quality ID # [id number]: Final reports with documentation of one or more dose reduction techniques (e.g., Au tomated exposure control, adjustment of the mA and/or kV according to patient size, use of iterative reconstruction technique) 2010 [employer]- All Rights Reserved Reading location - IP/workstation name: [email or web address]
--- NOTE | 2020-06-05 09:38 | RADIOLOGY REPORT (SQ) ---
EXAM DESCRIPTION: CTA CHEST IMAGES COMPLETED DATE/TIME: 06/05/2020 8:26 am REASON FOR STUDY: tachycardia/low oxygen sats/recent trauma COMPARISON: None. TECHNIQUE: CT scan of the chest performed using helical scanning technique with dynamic intravenous contrast injection. Images reviewed with lung, soft tissue and bone windows. Reconstructed coronal and sagittal MPR images reviewed. Additional 3 dimensional post-processing performed to develop Maximal Intensity Projection images (LA P). All images stored on PACS. All CT scanners at this facility use dose modulation, iterative reconstruction, and/or weight based d osing when appropriate to reduce radiation dose to as low as reasonably achievable (ALARA). [facility]: Dose Right [facility]: CareDose [facility]: Dose Right [facility]: Teradose 4D [facility]: [employer] CONTRAST TYPE AND DOSE: Contrast/concentration: Isovue 350.00 mmol/ml; Total Contrast Delivered: 77. 0 ml; Total Saline Delivered: 70.0 ml Contrast bolus optimized for the pulmonary arteries. RENAL FUNCTION: No GFR or creatinine was reported. RADIATION DOSE: CT Rad equipment meets quality standard of care and radiation dose reduction techniq ues were employed. CTDIvol: 7.6 - 29.8 mGy. DLP: 3048 mGy-cm. LIMITATIONS: None. FINDINGS: LUNGS AND PLEURA: There are mucous plugs within segmental bronchi in the right lower lobe (image 72 of series 4). The ground-glass opacities in the dependent portion of the right lower lobe are nonspecific and could represent atelectasis or pneumonia. There are small bilateral pleural effu sions. There is no consolidation or pneumothorax AORTA AND GREAT VESSELS: No aneurysm or dissection of the thoracic aorta. HEART: Cardiomegaly and trace pericardial effusion. PULMONARY ARTERIES: No emboli. HILAR AND MEDIASTINAL STRUCTURES: No adenopathy or mass. HARDWARE: None in the chest. UPPER ABDOMEN: Refer to the separate report of the CT of the abdomen. THYROID AND OTHER SOFT TISSUES: No mass, adenopathy, subcutaneous emphysema or hematoma. BONES: No acute findings. 3D MIPS: Confirm above findings. OTHER: No other finding. IMPRESSION: 1. No pulmonary emboli. 2. Cardiomegaly and small bilateral pleural effusions without evidence of pulmonary edema. 3. Mucous plugs within segmental bronchi in the right lower lobe (image 72 of series 4). 4. Ground-glass opacities in the dependent portion the right lower lobe that are nonspecific and coul d represent atelectasis or pneumonia. COMMENT: Quality ID # [id number]: Final reports with documentation of one or more dose reduction techniques (e.g., Automated exposure control, adjustment of the mA and/or kV according to patient size, use of iterative reconstruction technique) TECHNICAL DOCUMENTATION: JOB ID: [id number] 2010 [employer]- All Rights Reserved Reading location - IP/workstation name: [email or web address]
[2020-06-05] MEDS ORDERED: CEFEPIME 1 GM/D5W RTU 1 GM/50 ML RTUPB IV ONE (10:32)
[2020-06-05] MEDS ORDERED: VANCOMYCIN HCL INJ 1000 MG VIAL IV ONE (10:33)
[2020-06-05 10:37] LABS: PARTIAL THROMBOPLASTIN TIME 29.3 SEC (23.5-35.8)
[2020-06-05] MEDS ORDERED: NORMAL SALINE 500 ML IV ONE (11:10)
[2020-06-05] MEDS ORDERED: MORPHINE SULFATE 10 MG/ML INJ IV ONE (13:30)
[2020-06-05] MEDS ORDERED: ONDANSETRON HCL INJ/PF 4 MG/2 ML SDV IV ONE (13:30)
[2020-06-05 16:12] VITALS: BP 105/52
--- NOTE | 2020-06-05 16:12 | ER Document Report ---
Entered by KAUSHAL KEY SCRIBE 06/05/20 0720 Acting as scribe for:MORA CHENG MD ED General - General Stated Complaint: ALTERED MENTAL STATUS Time Seen by Provider: 06/05/20 07:05 Primary Care Provider: JAZ GRAHAM CNM [Primary Care Provider] - Follow up as needed Information source: Emergency Med Personnel, [facility] Records Cannot obtain history due to: Altered mental status Notes: This 70 year old female patient presents to the emergency department today with a fever and altered mental status. Patient's history was obtained by EMS personnel and [facility] records. This morning patient was found by family sitting on the toilet and only oriented to self. EMS was called and EMS reports a oral temp of 102.4, BP 213/180, pulse ox of 91%, and 143 HR. Patient is on eliquis and had a recent fall x6 days ago at her workplace. Patient has been improving since and just had a follow-up to be cleared for work. Patient states she has a headache. TRAVEL OUTSIDE OF THE [place] IN LAST 30 DAYS: No - Related Data Allergies/Adverse Reactions: No Known Allergies Allergy (Verified 05/30/20 16:43) Past Medical History - General Information source: Emergency Med Personnel, [facility] Records Cannot obtain history due to: Altered mental status - Social History Smoking Status: Never Smoker Cigarette use (# per day): No Lives with: Family Family History: Reviewed & Not Pertinent - Past Medical History Cardiac Medical History: Reports: Hx Hypercholesterolemia, Hx Hypertension Past Surgical History: Reports: Hx Breast Surgery - Cyst left breast, Hx Carotid Endarterectomy - Left, Hx Hysterectomy, Other - colonoscopy Review of Systems - Review of Systems -: Yes ROS unobtainable due to patient's medical condition Physical Exam - Vital signs Vitals: Temp Pulse Ox 102.4 F H 91 L 06/05/20 06:28 06/05/20 06:28 - General General appearance: Alert, Other - Febrile - HEENT Head: Normocephalic Eyes: Normal Pupils: PERRL Mouth/Lips: Other - geographic tongue Mucous membranes: Dry Neck: Other - Surgical scar on left carotid Notes: Macular ecchymosis 6x3 cm on the forehead above the left eye. - Respiratory Respiratory status: No respiratory distress Chest status: Nontender Breath sounds: Normal Chest palpation: Normal - Cardiovascular Rhythm: Regular Heart sounds: Normal auscultation Murmur: No - Abdominal Inspection: Normal, Other - Soft Distension: No distension Bowel sounds: Normal Tenderness: Nontender - Extremities Notes: Moves all four extremities. Normal ROM of bilateral lower extremities. Ecchymosis 30+cm on the anterior left lower extremity from the knee down, 20 cm in width. - Neurological Neuro grossly intact: Yes Sensory: Normal Notes: Alert. Confused. Speech is normal. Resting comfortably. Easily aroused. Moves all 4 extremities. - Psychological Associated symptoms: Normal affect, Normal mood - Skin Skin Temperature: Warm Skin Moisture: Dry Skin Color: Normal Course - Re-evaluation Re-evalutation: 06/05/20 11:08 Patient resting comfortably at this time hemodynamically improved with atrial f ib under control less than 100 and blood pressure is stable at 138/94. Patient is alert able answer questions clearly speech is clear moves all extremities and pupils equal round reactive to light. 06/05/20 11:14 Initial consult for transfer went to [facility] in [place]. We learned that the violent was not accepting patients and was the or extreme cases and intubated needing ICU care. This patient did not meet that criteria so therefore a second hospital was notified. Case discussed at [facility] in [place] and patient has been accepted as a ED to ED transfer at this time. Still pending their call back regarding transportation. 06/05/20 16:10 Chest prior to discharge patient dropped her blood pressure and pulse in the IV diltiazem drip was discontinued. Patient responded with a blood pressure return of 215 systolic. Patient was alert. Patient's pulse did not become tachycardic being off of the diltiazem drip and so patient is being transported at this point in time without the diltiazem drip going. Patient is medically stable for transfer. - Vital Signs Vital signs: Temp Pulse Resp BP Pulse Ox 100.4 F 74 19 87/46 L 97 06/05/20 15:47 06/05/20 13:00 06/05/20 15:47 06/05/20 15:47 06/05/20 15:47 06/05/20 11:09 As above vital signs stable temperature is 100.6 F. - Laboratory Result Diagrams: 06/05/20 06:35 06/05/20 06:35 Laboratory results interpreted by me: 06/05/20 06/05/20 06/05/20 06:35 06:35 06:35 WBC 13.0 H Lymph % (Auto) 6.1 L Absolute Neuts (auto) 11.3 H Seg Neutrophils % 86.6 H PT 15.6 H D-Dimer Potassium 3.4 L Glucose 191 H Lactic Acid AST 46 H NT-Pro-B Natriuret Pep Urine Protein Urine Glucose (UA) Urine Ketones Urine Blood Acetaminophen 06/05/20 06/05/20 06/05/20 06:35 06:35 06:35 WBC Lymph % (Auto) Absolute Neuts (auto) Seg Neutrophils % PT D-Dimer Potassium Glucose Lactic Acid 2.4 H AST NT-Pro-B Natriuret Pep 2500 H Urine Protein Urine Glucose (UA) Urine Ketones Urine Blood Acetaminophen < 10 L 06/05/20 06/05/20 06/05/20 06:55 08:57 10:00 WBC Lymph % (Auto) Absolute Neuts (auto) Seg Neutrophils % PT D-Dimer 0.82 H Potassium Glucose Lactic Acid 2.7 H AST NT-Pro-B Natriuret Pep Urine Protein >=500 H Urine Glucose (UA) 50 H Urine Ketones TRACE H Urine Blood SMALL H Acetaminophen 06/05/20 13:02 WBC Lymph % (Auto) Absolute Neuts (auto) Seg Neutrophils % PT D-Dimer Potassium Glucose Lactic Acid 2.4 H AST NT-Pro-B Natriuret Pep Urine Protein Urine Glucose (UA) Urine Ketones Urine Blood Acetaminophen 06/05/20 11:09 Laboratory shows a white blood cell count of 13 lactic acid of 2.4 BNP of 2500 and small amount of blood noted in urine. D-dimer was 0.82 lactic acid 2.7 on repeat - Diagnostic Test Radiology reviewed: Image reviewed, Reports reviewed Radiology results interpreted by me: 06/05/20 11:12 Chest X-Ray 06/05/20 06:46 IMPRESSION: Mild cardiomegaly. No acute findings Head CT 06/05/20 07:25 IMPRESSION: 4 x 2.7 cm intraparenchymal hematoma in the right temporal lobe associated associated with vasogenic edema, effacement of the cerebral sulci, loss of the davis-white and mild mass effect upon the adjacent brain parenchyma. Cervical Spine CT 06/05/20 07:29 IMPRESSION: Evaluation is limited due to patient motion artifact particularly at at C5-C6. There is no definite acute fracture or malalignment of the cervical spine. Chest/Abdomen CTA 06/05/20 07:30 IMPRESSION: 1. No pulmonary emboli. 2. Cardiomegaly and small bilateral pleural effusions without evidence of pulmonary edema. 3. Mucous plugs within segmental bronchi in the right lower lobe (image 72 of series 4). 4. Ground-glass opacities in the dependent portion the right lower lobe that are nonspecific and could represent atelectasis or pneumonia. Abdomen/Pelvis CT 06/05/20 07:31 IMPRESSION: 1. 11 x 3 mm calculus in the right ureterovesicular junction that is associated with severe hydroureteronephrosis and increased urothelial enhancement. 2. 17 x 4 mm right adrenal nodule. X-rays as above chest x-ray shows mild cardiomegaly otherwise no acute finding head CT shows a 4 x 2.7 cm hematoma right temporal lobe with vasogenic edema and a mild mass-effect on the adjacent brain cervical spine shows no acute fracture or malalignment chest abdomen CTA shows cardiomegaly bilateral pleural pulmonary effusions without evidence of pulmonary edema there is no pulmonary emboli noted there is mucus plugging in the bronchi and groundglass opacities in the right lower lobe consider pneumonia. Abdomen shows an 11 x 3 mm calculus in the right ureteral vesicular junction associated with severe hydro-nephrosis. Also a 17 x 4 mm right adrenal nodule. - EKG Interpretation by Me Additional EKG results interpreted by me: 06/05/20 11:10 Twelve-lead EKG shows a atrial fibrillation with RVR with a heart rate ventricular rate of 150. Probable LVH with secondary repull abnormality. QT interval within normal rate limit QRS within normal interval. No evidence for NE. Second EKG shows atrial fibrillation with a ventricular rate of 98 occasional PVC and borderline R wave progression in anterior leads no evidence for an acute NE. QT interval within normal interval range QRS within normal QRS interval range SD interval indeterminate normal axis. Critical Care Note - Critical Care Note Total time excluding time spent on procedures (mins): 55 - Critical care time spent on managing patient's systolic diastolic hypertension and atrial fib with RVR with intravenous diltiazem bolus and drip. Also determine patient's mental status but is neurological exam consistent with an altered mental status. Patient also has been treated for an infectious disease with elevated white count low-grade temperature pneumonia presents on chest x-ray also consideration for COVID-19.. Also time spent talking to 2 different transfer centers in order to transfer patient to appropriate facility with neurosurgical care. Discharge - Discharge Clinical Impression: Cerebral brain hemorrhage, Accelerated hypertension with heart disease and without congestive heart failure, Pneumonia, Suspected COVID-19 virus infection, Hydronephrosis concurrent with and due to calculi of kidney and ureter Condition: Critical Disposition: [facility] Referrals: JAZ GRAHAM CNM [Primary Care Provider] - Follow up as needed I personally performed the services described in the documentation, reviewed and edited the documentation which was dictated to the scribe in my presence, and it accurately records my words and actions.
--- NOTE | 2020-06-05 21:04 | EKG REPORT ---
SEVERITY:- ABNORMAL ECG - ATRIAL FIBRILLATION, V-RATE 81-115 VENTRICULAR PREMATURE COMPLEX BORDERLINE R WAVE PROGRESSION, ANTERIOR LEADS : Confirmed by: Lucy Leyva 05-Jun-2020 21:03:51
== END 2020-06-05 15:25 | disposition short-term general hospital (02) ==
LOC: ER 06:27
DX: S06.360A Traumatic hemorrhage of cerebrum, unspecified, without loss of consciousness, initial encounter (principal); J18.9 Pneumonia, unspecified organism; N13.2 Hydronephrosis with renal and ureteral calculous obstruction; I25.10 Atherosclerotic heart disease of native coronary artery without angina pectoris; I50.9 Heart failure, unspecified; I11.0 Hypertensive heart disease with heart failure; R50.9 Fever, unspecified; R41.82 Altered mental status, unspecified; W19.XXXA Unspecified fall, initial encounter; Z79.01 Long term (current) use of anticoagulants; Z91.81 History of falling; I10 Essential (primary) hypertension; Z20.828 Contact with and (suspected) exposure to other viral communicable diseases
CPT/HCPCS: 93005; 99291; 51701; 51702; 96375; 96365; 96366; 96368; 36415; 87040; 87086; 80307 ×3; 82550; 83605; 83690; 85025; 85610; 85730; 82270; 80053; 81001; 84484; 85379; 82803; 83880; 71045; 70450; 71275; 72125; 74177; 93010; U0003; J3490 ×2; J2270; J2405; J7030; J7040; J3370; J0692; C9803; 87635

== ENCOUNTER 2020-08-05 09:59 | Emergency (ER) | payer BC ==
[2020-08-05] MEDS ORDERED: ONDANSETRON HCL INJ/PF 4 MG/2 ML SDV IV ONE (10:23)
--- NOTE | 2020-08-05 10:30 | RADIOLOGY REPORT (SQ) ---
EXAM DESCRIPTION: CT HEAD WITHOUT IMAGES COMPLETED DATE/TIME: 08/05/2020 10:11 am REASON FOR STUDY: Left-sided weakness, A. fib RVR, anticoagulated COMPARISON: 06/05/2020 TECHNIQUE: Axial images acquired through the brain without intravenous contrast. Images reviewed wi th bone, brain and subdural windows. Additional sagittal and coronal reconstructions were generated. Images stored on PACS. All CT scanners at this facility use dose modulation, iterative reconstruction, and/or weight based d osing when appropriate to reduce radiation dose to as low as reasonably achievable (ALARA). [facility]: Dose Right [facility]: CareDose [facility]: Dose Right [facility]: Teradose 4D [facility]: [employer] RADIATION DOSE: mGy. LIMITATIONS: None. FINDINGS: VENTRICLES: Normal size and contour. CEREBRUM: There is a large right frontal lobe parenchymal hemorrhage with surrounding vasogenic edema . This crosses the midline and effects approximately 3 mm of leftward midline shift. There is also a subarachnoid component along the parafalcine sulci bilaterally. Background of white matter hypoatte nuation consistent with sequela of chronic microvascular ischemic changes and previous parenchymal he morrhages. CEREBELLUM: No masses. No hemorrhage. No alteration of density. No evidence for acute infarction. EXTRAAXIAL SPACES: Blood products extend into the bilateral lateral ventricles, 3rd ventricle, and 4t h ventricle. ORBITS AND GLOBE: No intra- or extraconal masses. Normal contour of globe without masses. CALVARIUM: No fracture. PARANASAL SINUSES: No fluid or mucosal thickening. SOFT TISSUES: No mass or hematoma. OTHER: No other significant finding. IMPRESSION: Large right frontal parenchymal hemorrhage with intraventricular and subarachnoid compon ent as detailed above. EVIDENCE OF ACUTE STROKE: YES. RIGHT MCA. COMMENT: Pertinent positive or negative findings of the imaging study reported as a CRITICAL EXAM maddy WALLACE MD at10:18 on 08/05/2020. Category of Critical Exam: Intracranial hemorrhage Quality ID # [id number]: Final reports with documentation of one or more dose reduction techniques (e.g., Au tomated exposure control, adjustment of the mA and/or kV according to patient size, use of iterative reconstruction technique) TECHNICAL DOCUMENTATION: JOB ID: [id number] 2010 [employer]- All Rights Reserved Reading location - IP/workstation name: [email or web address]
[2020-08-05] MEDS ORDERED: LEVETIRACETAM 1000 MG/NACL-ISO 1,000 MG/100 ML RTUPB IV ONE (10:47)
[2020-08-05 11:10] LABS: APPEARANCE,URINE CLOUDY; BILIRUBIN,URINE NEGATIVE (NEGATIVE); COLOR,URINE YELLOW; GLUCOSE, URINE NEGATIVE (NEGATIVE); KETONES,URINE NEGATIVE (NEGATIVE); LEUKOCYTE ESTERASE,URINE LARGE (NEGATIVE); NITRITE,URINE NEGATIVE (NEGATIVE); PROTEIN,URINE 100 mg/dL (NEGATIVE); UROBILINOGEN,URINE NEGATIVE mg/dL (<2.0)
--- NOTE | 2020-08-05 11:10 | RADIOLOGY REPORT (SQ) ---
EXAM DESCRIPTION: CHEST SINGLE VIEW IMAGES COMPLETED DATE/TIME: 08/05/2020 10:52 am REASON FOR STUDY: Acute hemorrhagic CVA COMPARISON: 06/05/2020 EXAM PARAMETERS: NUMBER OF VIEWS: One view. TECHNIQUE: Single frontal radiographic view of the chest acquired. RADIATION DOSE: NA LIMITATIONS: None. FINDINGS: LUNGS AND PLEURA: No opacities, masses or pneumothorax. No pleural effusion. MEDIASTINUM AND HILAR STRUCTURES: No masses. Contour normal. HEART AND VASCULAR STRUCTURES: Heart normal in size. Normal vasculature. BONES: No acute findings. HARDWARE: None in the chest. OTHER: No other significant finding. IMPRESSION: NO ACUTE RADIOGRAPHIC FINDING IN THE CHEST. TECHNICAL DOCUMENTATION: JOB ID: [id number] 2010 [employer]- All Rights Reserved Reading location - IP/workstation name: [email or web address]
[2020-08-05] MEDS ORDERED: CEFTRIAXONE 1 GM/D5W RTU 1 GM/50 ML RTUPB IV ONE (11:17)
[2020-08-05 11:19] LABS: ABSOLUTE BASOPHILS # (AUTO) 0.1 10^3/uL (0.0-0.2); ABSOLUTE MONOCYTES (AUTO) 0.6 10^3/uL (0.1-1.4); ABSOLUTE NEUT (AUTO) 6.6 10^3/uL (1.7-8.2); BASOPHILS % (AUTO) 0.7 % (0-2); EOSINOPHILS % (AUTO) 0.5 % (0-6); HEMATOCRIT 38.5 % (36.0-47.0); HEMOGLOBIN 12.7 g/dL (12.0-15.5); LYMPHOCYTES % (AUTO) 21.3 % (13-45); MEAN CORPUSCULAR HEMOGLOBIN 26.7 pg (27.0-33.4); MEAN CORPUSCULAR HGB CONC 32.9 g/dL (32.0-36.0); MEAN CORPUSCULAR VOLUME 81 fl (80-97); MONOCYTES % (AUTO) 6.3 % (3-13); PLATELET COUNT 139 10^3/uL (150-450); RED BLOOD COUNT 4.74 10^6/uL (3.72-5.28); RED CELL DISTRIBUTION WIDTH 16.3 % (11.5-14.0); SEGMENTED NEUTROPHILS % (AUTO) 71.2 % (42-78); TOTAL CELLS COUNTED % (AUTO) 100 %; WHITE BLOOD COUNT 9.2 10^3/uL (4.0-10.5)
[2020-08-05 11:26] LABS: PROTHROMBIN TIME 17.3 SEC (11.4-15.4)
[2020-08-05 11:30] LABS: ALBUMIN 3.6 g/dL (3.5-5.0); ALKALINE PHOSPHATASE 100 U/L (38-126); ANION GAP 12 (5-19); ASPARTATE AMINO TRANSFERASE 45 U/L (14-36); BILIRUBIN,DIRECT 0.2 mg/dL (0.0-0.4); BILIRUBIN,TOTAL 0.5 mg/dL (0.2-1.3); BLOOD UREA NITROGEN 13 mg/dL (7-20); CALCIUM 9.4 mg/dL (8.4-10.2); CARBON DIOXIDE 21 mmol/L (22-30); CHLORIDE 112 mmol/L (98-107); CREATINE KINASE 50 U/L (30-135); GLUCOSE 166 mg/dL (75-110); POTASSIUM 4.2 mmol/L (3.6-5.0); TOTAL PROTEIN 6.5 g/dL (6.3-8.2)
--- NOTE | 2020-08-05 11:50 | ER Document Report ---
Entered by RANCHO LEON SCRIBE 08/05/20 1012 Acting as scribe for:OCTAVIANO WALLACE MD ED Neuro Symptoms/Deficit - General Chief Complaint: Altered Mental Status Stated Complaint: ALTERED MENTAL STATUS Time Seen by Provider: 08/05/20 10:04 Primary Care Provider: JAZ GRAHAM CNM [Primary Care Provider] - Follow up as needed Mode of Arrival: Medic Information source: Patient Notes: This 70-year-old female patient is brought to the emergency room by EMS as a stroke alert. By history she was sitting on toilet and fell off about 8:45 AM this morning she hit her forehead on a door frame. She is alert, vomiting x2, unable to walk. EMS reports she developed left facial droop about 9:55 AM in route to the hospital. She was found to have left-sided weakness, A. fib with RVR with a rate of about 160. EMS gave Cardizem 18 mg IV bolus then 5 mg drip and brought her rate down to about 100. The patient does take Eliquis 5 mg twice daily, she did not take her morning dose today. She was seen here on 06/05/2020 with an intracranial hemorrhage and was transferred to [facility] at that time. After discussions with Dr. Booth the neurosurgeon veterinary practitioner and our pharmacy, [facility] prior to her departure. TRAVEL OUTSIDE OF THE [place] IN LAST 30 DAYS: No - Related Data Allergies/Adverse Reactions: No Known Allergies Allergy (Verified 05/30/20 16:43) Past Medical History - General Information source: Patient, Transfer Record, Emergency Med Personnel, [facility] Records, Outside Facility Records - Social History Smoking Status: Never Smoker Cigarette use (# per day): No Frequency of alcohol use: None Drug Abuse: None Lives with: Family Family History: Reviewed & Not Pertinent - Past Medical History Cardiac Medical History: Reports: Hx Atrial Fibrillation - on eliquis, Hx Hypercholesterolemia, Hx Hypertension Past Surgical History: Reports: Hx Breast Surgery - Cyst left breast, Hx Carotid Endarterectomy - Left, Hx Hysterectomy, Other - colonoscopy Review of Systems - Review of Systems Constitutional: See HPI, Other - altered per EMS EENT: No symptoms reported Cardiovascular: See HPI Respiratory: No symptoms reported Gastrointestinal: No symptoms reported Genitourinary: No symptoms reported Female Genitourinary: No symptoms reported Musculoskeletal: No symptoms reported Skin: No symptoms reported Hematologic/Lymphatic: No symptoms reported Neurological/Psychological: See HPI -: Yes All other systems reviewed and negative Physical Exam - Notes Notes: Physical Exam: General: Alert and oriented, appears nauseated. HEENT: Normocephalic. PERRL. Extraocular movements intact. Oropharynx clear. There is significant left sided tongue deviation with tongue protrusion. There is dried blood to the left medial eyebrow. Minimal left sided facial droop. Neck: Supple. Non-tender. Respiratory: No respiratory distress. Clear and equal breath sounds bilaterally. Cardiovascular: Tachycardic in the low 100s, irregularly irregular. Abdominal: Normal Inspection. Non-tender. No distension. Normal Bowel Sounds. Back: No gross abnormalities. Extremities: Upper extremities: 5/5 Chute Man strength with normal ROM on the right. 1/5 salvage machine operator strength on the left, able to squeeze minimally for a brief second and then unable to squeeze. Lower extremity: 5/5 strength in RLE, 1/5 LLE strength, able to minimally move LLE off the bed it immediately falls down. Neurological: Normal cognition. AAOx4. See NIH stroke scale. There is significant left sided tongue deviation with tongue protrusion. Psychological: Normal affect. Normal Mood. Skin: Warm. Dry. Normal color. Course - Re-evaluation Re-evalutation: 08/05/20 11:13 I consulted our pharmacist and found that we do not have the reversal agent for Eliquis. I spoke with a family member who confirmed the patient does continue to take Eliquis. 08/05/20 11:25 The daughter is here with the discharge paperwork from [facility], the patient remained on Eliquis 5 mg twice daily, she did not get her morning dose today. I spoke with the pharmacy and we do not have the Andexxa. Ice just got off the phone with Dr. Booth from the [facility] neurosurgery and he said they will use the [employer], but if the helicopter is almost here then he would have the patient receive the medicine when she gets [facility]. - Laboratory Result Diagrams: 08/05/20 10:44 08/05/20 10:44 - Diagnostic Test Radiology reviewed: Image reviewed, Reports reviewed - Chest x-ray does not show acute cardiopulmonary process. CT scan of the head shows large right frontal l obe parenchymal hemorrhage with surrounding vasogenic edema. There is 3 mm of leftward midline shift. There is a subarachnoid component along the parafalcine sulci bilaterally. - EKG Interpretation by Me EKG shows normal: [place], Intervals, QRS Complexes, ST-T Waves Rate: Tachycardia - 112 Rhythm: A.Fib Critical Care Note - Critical Care Note Total time excluding time spent on procedures (mins): 65 Comments: At least 65 minutes spent evaluating patient, reviewing old records and old CT scans, seeing that the patient had a very large intracranial hemorrhage only 2 months ago. Eventually was able to speak with the family's and found out the patient had been discharged home on Eliquis twice daily after the last intracranial hemorrhage. Time was spent in frequent repeat evaluations, monitoring blood pressure and her A. fib w/RVR. Time making phone calls to transfer centers, speaking with neurosurgery PA and later the neurosurgeon excepting the patient. Time spent calling her pharmacy to try to determine what reversal agent we might have, and then getting the [employer] that was available released. Arranging for helicopter transport of the patient. ED [employer]/Exc Criteria - Inclusion Criteria: 1: Patient presented to ED within 3 hours of acute ischemic stroke symptom onset? -: Yes 2: Did baseline CT exclude intracranial hemorrhage and/or other risk factors? -: No 3: Is the age of the patient 18 years of age or greater? : If any of the above questions are answered "NO" then stop, patient is not a candidate for Alteplase, : If all of the above questions are answered "YES" then continue with Exclusion Criteria. - Exclusion Criteria: 1: Is there evidence of intracranial hemorrhage on baseline CT? 2: Is there suspicion of subarachnoid hemorrhage (even if CT negative)? 3: Is there a history of serious head trauma, recent previous stroke or AL within 3 months? 4: Does the patient have a clinical presentation consistent with AL or post-AL pericarditis? 5: Is there history of intracranial hemorrhage? 6: On repeated measurement is Systolic BP greater than 185mmHg or Diastolic BP greater that 110 mmHg and is aggressive treatment needed to reduce blood pressure to these limits (e.g. constant infusion of an anti-hypertensive)? 7: Did the patient awake with stroke symptoms? 8: Has the patient had a lumbar puncture or an arterial puncture at a non- compressile site within 7 days? 9: With in the last 14 days did the patient have surgery or major trauma? 10: Is the patient or less than 2 weeks? 11: Was there any active bleeding or acute trauma? 12: Does the patient have intracranial neoplasm, arteriovenous malformation or aneurysm? 13: Does the patient have abnormal glucose (less than 50 or greater than 400mg/dl)? Record glucose in Comment. 14: Patient has rapidly improving symptoms at the time Alteplase is to be Administered. 15: Does the patient have any risks for bleeding, including but not limited to: a.: Current use of Coumadin with PT greater than 15 seconds or INR greater than 1.7. b.: Current use of Pradaxa (Dabigatran). c.: Heparin administereed within the past 48 hours and PTT elevated. d.: Platelet count less than 100,000/mm. e.: Major surgery or serious trauma within 14 days. f.: Gastrointestinal or gynecological urinary bleeding within 14 days. g.: Myocardial Infarction (AL) within 3 months. : If the answer to any of the above questions is "YES" then stop, the patient is not a candidate for Alteplase. : If the answer to all of the above questions is "NO" then the patient may be eligible for the Administration of Alteplase. : If the patient is noted to have seizure activity at onset of Stroke symptoms; Consult Neurologist for further evaluation. - The patient is: -: Included and is eligible to receive Alteplase. *Initiate bed placement at higher level of care* Reviewed risks & benefits of thrombolytic therapy: I have reviewed the risks and benefits of thrombolytic therapy with the patient and/or his/her family. -: Excluded and not eligible to receive Alteplase for the above exclusions. -: Excluded and not eligible to receive Alteplase for other reasons (specify in comments): - Diagnosis of TIA: -: Patient presented with transient symptoms that are now resolved and no other neurologic findings are currently present. List symptoms in comments. -: Patient is NOT a candidate for tPA. -: ____(put name in comment) has been consulted for admission and continued evaluation of risk factor assessment. ED NIH Stroke Scale - NIH Stroke Scale *: 1. NIH scale should be completed with appropriate accompanying assessment tools. *: 2. The NIH should reflect what the patient is capable of doing and should not be coached by the clinician. 1a. Level of Consciousness: 0=Alert;keenly responsive -: 1=Drowsy -: 2=Obtunded -: 3=Coma/unresponsive or reflex to noxious stimuli. 1a. Responses: 0 1b. Orientation Questions: a. What month is it? -: b. How old are you? -: 0=Answers both questions correctly. -: 1=Answers one question correctly or patient is intubated or has orotracheal trauma. -: 2=Answers neither question correctly. 1b. Responses: 0 1c. Response to commands: a. Open and close eyes? -: b. Chute Man and release hand? -: Credit is given despite weakness. Demonstration of task is permitted. Substitute command if hands cannot be used. -: 0=Performs both tasks correctly -: 1=Performs one task correctly -: 2=Performs neither task correctly 1c. Responses: 0 2. Gaze: Establish eye contact and instruct patient to "Follow my finger" -: 0=Normal -: 1=Partial gaze palsy. Gaze is abnormal in one or both eyes, but where forced deviation or total gaze paresis is not present. -: 2=Forced deviation or total gaze paresis. 2. Responses: 0 3. Visual Sow: Sees fingers in all four quadrants. -: 0=No visual loss. -: 1=Partial hemianopsia. -: 2=Complete hemianopsia. -: 3=Bilateral hemianopsia (including Cortical blindness) 3. Responses: 0 4. Facial Movement: Instruct patient to: -: a. Show me your teeth -: b. Raise your eyebrows -: c. Close your eyes -: d. Smile -: 0=Normal symmetrical movement -: 1=Minor paralysis (flattened nasolabial fold, asymmetry on smiling). -: 2=Partial paralysis (total or near total paralysis of lower face). -: 3=Complete paralysis of upper and lower face 4. Responses: 1 5. Motor functions (left arm): Alternate sides and extend each arm with palms down (90 degrees if sitting or 45 degrees for supine). -: 0=No drift;limb holds for full 10 seconds. -: 1=Drift; limb holds but drifts down before full 10 seconds, but does not hit bed. -: 2=Some effort against gravity; limb cannot get to or maintain position. -: 3=No effort against gravity; limb falls. -: 4=No movement. -: UN=Amputation, joint fusion, explain in comments. 5. Responses (left arm): 2 5. Motor Functions (right arm): Alternate sides and extend each arm with palms down (90 degrees if sitting or 45 degrees for supine). -: 0=No drift;limb holds for full 10 seconds. -: 1=Drift; limb holds but drifts down before full 10 seconds, but does not hit bed. -: 2=Some effort against gravity; limb cannot get to or maintain position. -: 3=No effort against gravity; limb falls. -: 4=No movement. -: UN=Amputation, joint fusion, explain in comments. 5. Responses (right arm): 0 6. Motor Functions (left leg): With patient lying supine, alternate sides and extend each leg (30 degrees always while supine). -: 0=No drift, leg holds position for full 5 seconds -: 1=Drift; leg falls before full 5 seconds but does not hit bed. -: 2=Some effort against gravity, leg falls to bed but some effort against gravity. -: 3=No effort against gravity, leg falls to bed immediately. -: 4=No movement. -: UN=Amputation, joint fusion; explain in comments. 6. Responses (left leg): 2 6. Motor Functions (right leg): With patient lying supine, alternate sides and extend each leg (30 degrees always while supine). -: 0=No drift, leg holds position for full 5 seconds -: 1=Drift; leg falls before full 5 seconds but does not hit bed. -: 2=Some effort against gravity, leg falls to bed but some effort against gravity. -: 3=No effort against gravity, leg falls to bed immediately. -: 4=No movement. -: UN=Amputation, joint fusion; explain in comments. 6. Responses (right leg): 0 7. Limb Ataxia: With eyes open instruct patient to: -: a. "Touch your finger to your nose". -: b. "Touch your heel to your escobedo" -: 0=Absent -: 1=Present in one limb. -: 2=Present in two limbs. -: UN=Amputation or joint fusion; explain in comments. 7. Responses: 1 7. If ataxia present choose as appropriate: Left arm, Left leg 8. Sensory: Test sensation using pinprick or noxious stimuli. Test as many body parts as possible. -: 0=Normal;no sensory loss -: 1=Mile to moderate sensory loss (patient feels pin prick but is less sharp on affected side). -: 2=Severe or total sensory loss. 8. Responses: 0 9. Best Language: Instruct patient to: -: a. "Describe what you see in this picture." -: b. "Name the items in this picture." -: c. "Read these sentences." -: 0=No aphasia, normal -: 1=Mild to moderate aphasia. -: 2=Severe aphasia -: 3=Mute, global aphasia, no usable speech or auditory comprehension. 9. Responses: 0 10. Articulation, Dysarthia: Instruct patient to: -: "Read these words" or "Repeat these words" -: 0=Normal -: 1=Mild to moderate; patient may slur some words but can be understood without difficulty. -: 2=Severe; patients speech so slurred as to be unintelligible in the absence of dysphasia. -: UN=Intubated or other physical barrier, explain in comments. 10. Responses: 0 11. Extinction or inattention: 0=No abnormality -: 1= Visual, tactile, auditory, spatial, or personal inattention or extinction to bilateral simulation in one or the sensory modalities. -: 2=Profound britta-inattention or britta-inattention to more than one modality; does not recognize own hand. 11. Responses: 0 Total Score: 6 Discharge - Discharge Clinical Impression: Atrial fibrillation with RVR Cerebral parenchymal hemorrhage Qualifiers: Intracerebral hemorrhage etiology: nontraumatic Cerebral hemorrhage location: unspecified cerebral location Laterality: right Qualified Code(s): I61.9 - Nontraumatic intracerebral hemorrhage, unspecified Hypertension Qualifiers: Hypertension type: essential hypertension Qualified Code(s): I10 - Essential (primary) hypertension Urinary tract infection Qualifiers: Urinary tract infection type: site unspecified Hematuria presence: without hematuria Qualified Code(s): N39.0 - Urinary tract infection, site not specified Condition: Fair Disposition: [facility] Referrals: JAZ GRAHAM CNM [Primary Care Provider] - Follow up as needed I personally performed the services described in the documentation, reviewed and edited the documentation which was dictated to the scribe in my presence, and it accurately records my words and actions.
[2020-08-05 11:56] VITALS: BP 140/77
[2020-08-05] MEDS ORDERED: [UNRECOGNIZED DRUG - MIXTURE] IV ONE (12:00)
--- NOTE | 2020-08-05 19:29 | EKG REPORT ---
SEVERITY:- ABNORMAL ECG - ATRIAL FIBRILLATION, V-RATE 67-161 : Confirmed by: Madelaine Islas MD 05-Aug-2020 19:28:26
== END 2020-08-05 11:48 | disposition short-term general hospital (02) ==
LOC: ER 09:59
DX: I61.9 Nontraumatic intracerebral hemorrhage, unspecified (principal); R29.810 Facial weakness; G81.94 Hemiplegia, unspecified affecting left nondominant side; N39.0 Urinary tract infection, site not specified; R00.0 Tachycardia, unspecified; I10 Essential (primary) hypertension; I48.91 Unspecified atrial fibrillation; Z79.01 Long term (current) use of anticoagulants
CPT/HCPCS: 93005; 99291; 96375; 96365; 36415; 87086; 82962; 82550; 83735; 85025; 85610; 87088; 80053; 81001; 84484; 87186; 71045; 70450; 93010; J3490; J2405; J0696; J1953; C9132